=== PATIENT | female | born 1980 | race Caucasian/White ===

== ENCOUNTER 2017-08-13 21:37 | Emergency (ER) | payer OTHER ==
[~2017-08-13] VITALS: Ht 167.6 cm; Wt 88.5 kg
[2017-08-13 21:47] VITALS: BP 125/78; Ht 167.6 cm; Wt 88.5 kg
== END 2017-08-13 22:21 | disposition home or self-care (01) ==
LOC: ED 21:37
DX: N39.0 Urinary tract infection, site not specified (principal)

== ENCOUNTER 2018-04-12 22:21 | Emergency (ER) | payer OTHER ==
[~2018-04-12] VITALS: Ht 167.6 cm; Wt 91.7 kg
[2018-04-12 22:53] VITALS: Ht 167.6 cm; Wt 91.7 kg
[2018-04-13 01:00] VITALS: BP 132/74
== END 2018-04-13 01:00 | disposition home or self-care (01) ==
LOC: ED 22:21
DX: R60.0 Localized edema (principal); Z98.890 Other specified postprocedural states
CPT/HCPCS: Q0092